=== PATIENT | male | born 1955 | race Hispanic/Latino ===

== ENCOUNTER 2017-06-07 13:58 | Emergency (ER) | payer MEDICARE, OTHER ==
--- NOTE | 2017-06-07 14:35 | ED PDOC ---
Arrival/HPI - General Chief Complaint: Weakness/Neurological Deficit Time Seen by Provider: 06/07/17 14:07 Historian: Patient - History of Present Illness Narrative History of Present Illness (Text): 06/07/17 14:32 A 62 year old male, whose past medical history includes hypertension, kidney transplant and diabetes (on insulin), was brought in by EMS to the emergency department complaining of low blood sugar. reports patient to have a blood sugar level in the 30s. ems gave oral dextrse with resolution. Patient reports decrease in appetite due to change in lap band. Reports to drinking apple juice. Patient denies any abdominal pain, fever or any other complaints at this time.upon arrival, pt noted to have blood sugar 65. 06/07/17 17:45 Symptom Onset: Sudden Symptom Course: Unchanged Activities at Onset: Rest Associated Symptoms (Text): none Past Medical History - Provider Review Nursing Documentation Reviewed: Yes - Infectious Disease Hx of Infectious Diseases: None - Cardiac Hx Hypertension: Yes - Endocrine/Metabolic Hx Diabetes Mellitus Type 1: Yes - Gastrointestinal Other/Comment: Lapband - Psychiatric Hx Substance Use: No - Surgical History Hx Kidney Transplant: Yes Other/Comment: Lapband Family/Social History - Physician Review Nursing Documentation Reviewed: Yes Family/Social History: No Known Family HX Smoking Status: Never Smoked Hx Alcohol Use: No Hx Substance Use: No Allergies/Home Meds Allergies/Adverse Reactions: Allergies No Known Allergies Allergy (Verified 06/07/17 14:12) Home Medications: Home Meds Medication Instructions Recorded Confirmed Unobtainable 06/07/17 06/07/17 Review of Systems - Physician Review All systems were reviewed & negative as marked: Yes - Review of Systems Constitutional: absent: Fevers Gastrointestinal: absent: Abdominal Pain Physical Exam Vital Signs Reviewed: Yes Vital Signs Temp Pulse Resp BP Pulse Ox 06/07/17 14:15 97.6 F 66 14 131/56 L 97 Temperature: Afebrile Blood Pressure: Hypotensive Pulse: Regular Respiratory Rate: Normal Appearance: Positive for: Well-Appearing, Non-Toxic, Comfortable Pain Distress: None Mental Status: Positive for: Alert and Oriented X 3 Finger Stick Blood Glucose: 119 - Systems Exam Head: Present: Atraumatic, Normocephalic Pupils: Present: PERRL Extroacular Muscles: Present: EOMI Conjunctiva: Present: Normal Mouth: Present: Moist Mucous Membranes Neck: Present: Normal Range of Motion Respiratory/Chest: Present: Clear to Auscultation, Good Air Exchange. No: Respiratory Distress, Accessory Muscle Use Cardiovascular: Present: Regular Rate and Rhythm, Normal S1, S2. No: Murmurs Abdomen: Present: Normal Bowel Sounds. No: Tenderness, Distention, Peritoneal Signs Back: Present: Normal Inspection Upper Extremity: Present: Normal Inspection. No: Cyanosis, Edema Lower Extremity: Present: Normal Inspection. No: Edema Neurological: Present: GCS=15, CN II-XII Intact, Speech Normal Skin: Present: Warm, Dry, Normal Color. No: Rashes Psychiatric: Present: Alert, Oriented x 3, Normal Insight, Normal Concentration Medical Decision Making ED Course and Treatment: 06/07/17 14:31 Impression: A 62 year old male with low blood sugar. Plan: -- Reassess and disposition Progress Notes: and patient decline any evaluation. given juice in er. initial blood sugar 65. given juice. blood sugar 130. refuse further eval in er, labs observation. requesting immediate dc. Leaving Against Medical Advice (AMA): The patient is choosing to leave against medical advice. I have personally explained to the patient that choosing to do so may result in permanent bodily harm or . I have discussed at great length that without further evaluation and monitoring there may be unforeseen circumstances and/or deterioration causing permanent bodily harm or as a result of their choice. The patient is alert, oriented, and shows the mental capacity to make clear decisions regarding the patients health care at this time. The patient continues to wish to leave against medical advice. The patient has been advised that they should return to the emergency room immediately if they change their mind at any time, or if their condition begins to change or worsen in any way. 06/07/17 17:46 - Lab Interpretations Lab Results: Lab Results 06/07/17 14:02: POC Glucose (mg/dL) 65 - Scribe Statement The provider has reviewed the documentation as recorded by the Pedro Pablo Calloway Provider Scribe Attestation: All medical record entries made by the Scribe were at my direction and personally dictated by me. I have reviewed the chart and agree that the record accurately reflects my personal performance of the history, physical exam, medical decision making, and the department course for this patient. I have also personally directed, reviewed, and agree with the discharge instructions and disposition. Disposition/Present on Arrival - Present on Arrival Any Indicators Present on Arrival: No History of DVT/PE: No History of Uncontrolled Diabetes: No Urinary Catheter: No History of Decub. Ulcer: No History Surgical Site Infection Following: None - Disposition Have Diagnosis and Disposition been Completed?: Yes Diagnosis: Hypoglycemia Disposition: AGAINST MEDICAL ADVICE Disposition Time: 03:00 Condition: UNKNOWN Discharge Instructions (ExitCare): Diabetic Hypoglycemia (DC) Additional Instructions: you are declining any observation in the hospital you are able to return to er with any worsening of symptoms or concerns. Referrals: [facility] [Outside] - [place] up with [place] [facility] [place] - Follow up with primary Forms: [employer] [facility] ([place])
[2017-06-07 14:37] VITALS: BP 131/56; PULSE 66; RESP 14; TEMP 97.6; O2SAT 97
== END 2017-06-07 14:48 | disposition left against medical advice (07) ==
LOC: ED 13:58
DX: E10.649 Type 1 diabetes mellitus with hypoglycemia without coma (principal); Z79.4 Long term (current) use of insulin; I10 Essential (primary) hypertension; Z94.0 Kidney transplant status